=== PATIENT | female | born 1975 | race Caucasian/White ===

== ENCOUNTER 2023-06-05 21:09 | Emergency (ER) | payer OTHER, SELFPAY ==
[2023-06-05 21:19] VITALS: BP 169/80
--- NOTE | 2023-06-06 00:14 | ED.GENMED ---
History of Present Illness
<LORENA Hughes - Last Filed: 06/06/23 00:21>
General
Chief Complaint: Head Injury
Source: patient
Exam Limitations: none
Time Seen by Provider: 06/06/23 00:04
Nursing documentation reviewed up to this point in time: agreed with
Travel History
Have you had any contact with someone who has COVID-19?: No
Do you have any symptoms of coronavirus? Fever > 100 degrees, chills, cough, shortness of breath, sore throat, loss of taste or smell, muscle aches, or headache?: No
History of Present Illness
History of Present Illness:
patient is a 48 y/o female presenting after a lamp cover fell on her head. Patient states that the cover fell on the top of her head. Patient denies falling or any loss of consciousness. Patient admits there was pain on the top of the head at the
time of the incidence and patient put ice on it which gave mild relief. Patient admits to mild tenderness with palpation. Patient denies Visual changes, CULVER, dizziness, CP, SOB, abdominal pain, fever, chills, N/V/D/C. Patient denies using a blood
thinner. Patient denies tobacco or alcohol use in the last 48 hrs.
Review of Systems
<LORENA Hughes - Last Filed: 06/06/23 00:21>
Review of Systems
All Other Systems: Not applicable
Constitutional: Reports no symptoms
EENT: Reports other (pain to top of the head )
Respiratory: Reports no symptoms
Cardiac: Reports no symptoms
ABD/GI: Reports no symptoms
: Reports no symptoms
Musculoskeletal: Reports no symptoms
Skin: Reports no symptoms
Neurological: Reports no symptoms
Endocrine: Reports no symptoms
Hematologic/Lymphatic: Reports no symptoms
Psychiatric: Reports no symptoms
Phy Exam
<LORENA Hughes - Last Filed: 06/06/23 00:21>
General Physical Exam
General Presentation: well appearing and no apparent distress
General Skin: warm and dry
General Habitus: normal
General Mental: alert
General Hydration: appears well hydrated
ENT Exam
ENT Exam: EOMI and TM's normal
Additional ENT: mild tenderness to palaption to top of the head
Eye Exam
Eye Exam: PERRL, cornea clear and conjunctiva normal
Cardiovascular Exam
Cardiovascular Exam: regular rate/rhythm, no edema, no murmur and normal peripheral pulses
Pulmonary Exam
Pulmonary Exam: lungs clear, no respiratory distress, no rales, no crackles, no rhonchi, no stridor, no wheezing and no cough
Gastrointestinal Exam
Gastrointestinal Exam: normal bowel sounds, non tender, soft, no organomegaly, no pulsatile mass and non distended
Neurological Exam
Neurological Exam: alert, oriented x3, no motor deficits and speech normal
Musculoskeletal Exam
Musculoskeletal Exam: full ROM and no edema
Skin Exam
Skin Exam: normal color, warm/dry, no rash and no petechia
Psychiatric Exam
Psychiatric Exam: normal mood/affect
Course
<LORENA Hughes - Last Filed: 06/06/23 00:21>
Vital Signs
Initial and Last Documented VS:
Initial Vital Signs
Temp Pulse Resp BP Pulse Ox
98.1 F 74 16 169/80 98
06/05/23 21:19 06/05/23 21:19 06/05/23 21:19 06/05/23 21:19 06/05/23 21:19
Last Documented Vital Signs
Temp Pulse Resp BP Pulse Ox
98.1 F 74 16 169/80 98
06/05/23 21:19 06/05/23 21:19 06/05/23 21:19 06/05/23 21:19 06/05/23 21:19
<Crystal Brand DO - Last Filed: 06/06/23 00:51>
Vital Signs
Initial and Last Documented VS:
Initial Vital Signs
Temp Pulse Resp BP Pulse Ox
98.1 F 74 16 169/80 98
06/05/23 21:19 06/05/23 21:19 06/05/23 21:19 06/05/23 21:19 06/05/23 21:19
Last Documented Vital Signs
Temp Pulse Resp BP Pulse Ox
98.1 F 74 16 169/80 98
06/05/23 21:19 06/05/23 21:19 06/05/23 21:19 06/05/23 21:19 06/05/23 21:19
<LORENA Hughes - Last Filed: 06/06/23 00:21>
MDM/Problems Addressed
Differential Diagnosis Includes:
concussion
hematoma formation
soft tissue swelling
MDM/Problems Addressed:
head injury
<LORENA Hughes - Last Filed: 06/06/23 00:21>
*Critical Care Note
Total Time (30-74mins, 75-104mins- exclusive of procedures): Not Applicable
<DO Lucy Ruby Last Filed: 06/06/23 00:51>
*Pulse Oximetry
Patient hypoxic: no
ED Attending Note
<LORENA Hughes - Last Filed: 06/06/23 00:21>
-
Portions of this chart may have been created with voice recognition software.� Occasional wrong word or��sound alike� substitutions may have occurred due to the inherent limitations of voice recognition software.
<Crystal Brand DO - Last Filed: 06/06/23 00:51>
ED Attending Note
Patient seen and examined by attending physician: Yes
I performed the substantive portion of visit, reviewed & personally made and approve the management plan that is documented in note by myself or ALBERT.: Yes
I performed a history and physical exam of patient and discussed management with resident, I reviewed resident's note and agree with documented findings and plan of care.: Yes
ED Attending Note:
This is a 48-year-old woman with no significant past medical history who presents to the ED tonight after a light fixture and apparently fell from her ceiling striking her on the top of her head. Injury occurred around 8:30 PM tonight. She denies
fall nor loss of consciousness. She admits to mild pain top of her head initially after injury but pain has since resolved. She applied ice to the top of her head. Denies dizziness nor lightheadedness. No vision difficulty. No neck nor back
pain, no weakness. No difficulty with ambulation.
She takes no anticoagulants.
TRAUMA EXAM:
VITAL SIGNS: Vital signs reviewed, cooperative. Mild to moderate systolic hypertension. Upon recheck has improved slightly to 160/79.
DISTRESS: No active disease
EYES: Pupils reactive, no orbital trauma
NOSE: No deformity or epistaxis
FACE AND SCALP: There is a small midline anterior frontal scalp contusion that is nontender to palpation. No abrasion or laceration. External canals no blood
NECK: Supple nontender, full range of motion without difficulty nor pain.
BACK: Back nontender, pelvis stable to compression
RESPIRATORY: No distress, breath sounds normal, no tender chest wall
CARDIAC: No murmur, pulses equal and strong
ABDOMEN: Soft nontender bowel sounds normal
SKIN: Skin intact no bleeding, color normal
EXTREMITIES: Nontender
NEUROLOGICAL: Alert, oriented, no motor deficits
PSYCH: Mood affect normal
Patient presents with small forehead scalp contusion after light fixture fell onto her head.
Area is nontender to palpation.
She denies headache, neck is supple, nontender.
Overall exam is benign, no focal neurodeficits.
She takes no anticoagulants and with reassuring exam, no indication for CT of the head.
She is noted to have mild to moderate systolic hypertension and does admit to diagnosis of borderline hypertension.
I do suspect patient may have element of hypertension and recommend prompt follow-up with PCP for recheck.
As patient overall appears well, without pain, unremarkable exam, I suspect hypertension may be a chronic issue.
Discussed that patient may develop a headache over the next several days and recommend Tylenol versus ibuprofen as needed for headache. If this is ineffective or if headache severe, accompanied with recurrent vomiting or any other worrisome
symptoms prompt return to the ED.
Otherwise recommend follow-up with PCP for recheck.
Discharge Plan
Departure
Patient Disposition: Home (Routine Discharge)
Date of Disposition: 06/06/23
Time of Disposition: 00:32
Patient with high blood pressure during this ER visit?: Yes
Condition: Good
Discharge Problem:
Minor closed head injury
Instructions: Minor Head Injury (DC), BLOOD PRESSURE
Referrals:
Oseas Hale MD [Family Provider] - Call in 1-3 days for appt
Interventions
Interventions:
*ED COVID-19 Vaccine History Last Done: 06/05/23 21:19
Discharge Date and Time
Print Language: LATVIAN
[2023-06-06 00:48] VITALS: BP 164/73
== END 2023-06-06 00:49 | disposition home or self-care (01) ==
LOC: EMR 21:09
PROVIDERS: EMERGENCY PHYSICIAN Emergency Medicine; FAMILY PHYSICIAN Internal Medicine Geriatric Medicine
DX: S06.0XAA Concussion with loss of consciousness status unknown, initial encounter (principal); W22.8XXA Striking against or struck by other objects, initial encounter; R03.0 Elevated blood-pressure reading, without diagnosis of hypertension
CPT/HCPCS: 99283

== ENCOUNTER 2023-07-05 13:09 | Emergency (ER) | payer OTHER, SELFPAY ==
[2023-07-05 13:23] VITALS: BP 158/93
[2023-07-05 13:55] VITALS: BMI 21.5
--- NOTE | 2023-07-05 13:58 | ED.GENMED ---
History of Present Illness
<Yissel Corey PA-C - Last Filed: 07/05/23 15:16>
General
Chief Complaint: Abdominal Pain
Source: patient
Exam Limitations: none
Time Seen by Provider: 07/05/23 13:57
Nursing documentation reviewed up to this point in time: agreed with
Travel History
Have you had any contact with someone who has COVID-19?: No
Do you have any symptoms of coronavirus? Fever > 100 degrees, chills, cough, shortness of breath, sore throat, loss of taste or smell, muscle aches, or headache?: No
History of Present Illness
History of Present Illness:
This is a 48 y/o F with no past medical history who is presenting emergency department today with periumbilical and suprapubic abdominal pain that started today. Patient states that she noticed it when she woke up this morning. Patient states that
the pain started after she used the bathroom. Patient states that she has not noticed any thing that makes her pain worse. It is not affected by food. Patient has no past surgical history. Patient has no associated nausea or vomiting, no fevers or
chills. Patient denies any vaginal discharge, vaginal bleeding. Patient has not had a period since April. Patient's pain did relieve with Tylenol. Patient notes that there is still some mild pain but she feels significantly better than she
did earlier.
Review of Systems
<Yissel Corey PA-C - Last Filed: 07/05/23 15:16>
Review of Systems
All Other Systems: ROS reviewed and negative except as documented in HPI and ROS
Phy Exam
<Yissel Corey PA-C - Last Filed: 07/05/23 15:16>
Physical Exam
Physical Exam:
General: Patient is well appearing and in no acute distress; non-toxic
Skin: Warm and dry, no rashes or lesions
Head: Normocephalic, atraumatic
Eyes: Sclera non-icteric. EOMs intact.
Cardiac: Regular rate and rhythm, no murmurs
Peripheral Vascular: No lower extremity swelling
Pulm: Normal respiratory effort
Abdomen: There is mild periumbilical and suprapubic tenderness to palpation noted. No palpable masses, no guarding, no rebound tenderness.
Neuro: CN II-XII intact, no focal neurologic deficits.
Psychiatric: Appropriate mood and affect.
Course
<Yissel Corey PA-C - Last Filed: 07/05/23 15:16>
Orders/Labs/Results
Orders:
Orders
07/05/23 14:24
Complete Blood Count/With Diff Urgent
Comprehensive Metabolic Panel Urgent
HCG, Serum Qualitative Screen Urgent
Lipase Urgent
07/05/23 14:46
Add On- LAB Urgent
Tests Added?: HCG qual
Abnormal Lab Results
07/05/23
14:24
RBC 4.08 L 10^6/uL
(4.20-5.40)
Hgb 11.1 L g/dL
(12.0-16.0)
Hct 33.0 L %
(37.0-47.0)
MCV 80.9 L fL
(81.0-99.0)
Lymphocytes % 20.1 L %
(20.5-51.1)
Creatinine 0.5 L mg/dL
(0.6-1.0)
Glucose 117 H mg/dl
(70-99)
07/05/23 14:24
07/05/23 14:24
Vital Signs
Initial and Last Documented VS:
Initial Vital Signs
Temp Pulse Resp BP Pulse Ox
98.7 F 68 16 158/93 100
07/05/23 13:23 07/05/23 13:23 07/05/23 13:23 07/05/23 13:23 07/05/23 13:23
Last Documented Vital Signs
Temp Pulse Resp BP Pulse Ox
98.7 F 68 16 143/79 97
07/05/23 13:23 07/05/23 13:23 07/05/23 13:23 07/05/23 14:26 07/05/23 14:45
<Sameer Skelton MD - Last Filed: 07/05/23 15:07>
Orders/Labs/Results
Orders:
Orders
07/05/23 14:24
Complete Blood Count/With Diff Urgent
Comprehensive Metabolic Panel Urgent
HCG, Serum Qualitative Screen Urgent
Lipase Urgent
07/05/23 14:46
Add On- LAB Urgent
Tests Added?: HCG qual
Abnormal Lab Results
07/05/23
14:24
RBC 4.08 L 10^6/uL
(4.20-5.40)
Hgb 11.1 L g/dL
(12.0-16.0)
Hct 33.0 L %
(37.0-47.0)
MCV 80.9 L fL
(81.0-99.0)
Lymphocytes % 20.1 L %
(20.5-51.1)
Creatinine 0.5 L mg/dL
(0.6-1.0)
Glucose 117 H mg/dl
(70-99)
07/05/23 14:24
07/05/23 14:24
Vital Signs
Initial and Last Documented VS:
Initial Vital Signs
Temp Pulse Resp BP Pulse Ox
98.7 F 68 16 158/93 100
07/05/23 13:23 07/05/23 13:23 07/05/23 13:23 07/05/23 13:23 07/05/23 13:23
Last Documented Vital Signs
Temp Pulse Resp BP Pulse Ox
98.7 F 68 16 143/79 97
07/05/23 13:23 07/05/23 13:23 07/05/23 13:23 07/05/23 14:26 07/05/23 14:45
<Yissel Corey PA-C - Last Filed: 07/05/23 15:16>
MDM/Problems Addressed
Differential Diagnosis Includes:
appendicitis, diverticulitis, gastroenteritis, ovarian mass, , cystitis, musculoskeletal sprain/strain
MDM/Problems Addressed:
abdominal pain
Chronic conditions affecting care:
n/a
Acute Exacerbation and/or Progression of Chronic Illness:
n/a
<Yissel Corey PA-C - Last Filed: 07/05/23 15:16>
*Pulse Oximetry
Patient hypoxic: no
*Critical Care Note
Total Time (30-74mins, 75-104mins- exclusive of procedures): Not Applicable
Data Reviewed
Review of Other/Old Records Reveals: Records (Reviewed ER physician documentation from 06/06/2023) and Discharge Summary (No discharge summaries in [facility] to review)
Source: patient and records
<Yissel Corey PA-C - Last Filed: 07/05/23 15:16>
Patient Management
Escalation/DeEscalation of care consider admission/obs:
This is a 48 y/o F with no past medical history who is presenting emergency department today with periumbilical and suprapubic abdominal pain that started today. Patient's pain significantly relieved with Tylenol. She is very well-appearing, only
has some mild tenderness on exam. No peritoneal signs. Highly doubt surgical abdomen. Her CBC and CMP are within normal limits. Her vital signs are stable. She is afebrile. CT scanning was offered, but patient in agreement with watch and wait
approach. Considering her symptoms are significantly improved, we will discharge her with close return precautions. Patient in agreement with this plan, all patient's questions were answered.
ED Attending Note
<Yissel Corey PA-C - Last Filed: 07/05/23 15:16>
-
Portions of this chart may have been created with voice recognition software.� Occasional wrong word or��sound alike� substitutions may have occurred due to the inherent limitations of voice recognition software.
<Sameer Skelton MD - Last Filed: 07/05/23 15:07>
ED Attending Note
Patient seen and examined by attending physician: Yes
I performed the substantive portion of visit, reviewed & personally made and approve the management plan that is documented in note by myself or ALBERT.: Yes
ED Attending Note:
48-year-old female complaining of vague mid to lower abdominal discomfort that started this morning. No nausea vomiting or fever. Patient actually states symptoms have improved significantly.
On exam patient is nontoxic in no distress. Warm and dry perfusing well nonfocal.
Abdomen with very minimal suprapubic tenderness. No rebound or guarding no mass or hernia. No upper abdominal tenderness.
Impression: Very low clinical suspicion for a surgical abdomen at this time. Labs are normal. I discussed further radiologic imaging specifically CAT scan. CAT scan was offered and encouraged is the only test to definitively rule out a surgical
finding at this time or diverticulitis which would warrant antibiotics and has risk for perforation. However given that patient has significant improvement in her symptoms, no fever no white count very reasonable to observe as an outpatient.
Patient would prefer that approach at this time. It was stressed however that if symptoms do not resolve in the next 24 hours or there is any progression of symptoms she should return immediately for reevaluation
Discharge Plan
Departure
Patient Disposition: Home (Routine Discharge)
Date of Disposition: 07/05/23
Time of Disposition: 14:59
Patient with high blood pressure during this ER visit?: Yes
Condition: Good
Discharge Problem:
Abdominal pain
Instructions: Acetaminophen, Abdominal Pain, BLOOD PRESSURE
Referrals:
Oseas Hale MD [Family Provider] -
Activity Restrictions/Additional Instructions:
You can continue to take Tylenol as needed for your pain, 325 mg-1,000 mg every 4-6 hours as needed. Please do not exceed 4g in 24 hours.
PLEASE RETURN TO THE EMERGENCY DEPARTMENT SHOULD YOU EXPERIENCE FEVERS OR CHILLS, PERSISTENCE OF YOUR PAIN, ASSOCIATED NAUSEA OR VOMITING, FEVERS OR CHILLS, OR ANY OTHER CONCERNING SIGNS OR SYMPTOMS.
Please follow up with your primary care provider.
Interventions
Interventions:
*Risk Screen - Suicide Last Done: 07/05/23 13:55
*General Assessment Last Done: 07/05/23 13:55
*Neglect/Abuse Screening Last Done: 07/05/23 13:55
ED- Fall Risk Assessment Last Done: 07/05/23 13:55
*ED COVID-19 Vaccine History Last Done: 07/05/23 13:23
IA-[id number]-[id number] Assessment Last Done: 07/05/23 13:55
Discharge Date and Time
Print Language: DIVEHI
[2023-07-05 14:26] VITALS: BP 143/79
[2023-07-05 14:34] LABS: % Basophils 0.4 % (0-2); % Eosinophils 0.3 % (0-6); % Immature Granulocytes 0.3 % (0-0.5); % Lymphocytes 20.1 % (20.5-51.1); % Monocytes 4.6 % (1.7-9.3); % Neutrophils 74.3 % (42.2-75.2); Absolute Lymphocytes 1.4 10^3/uL (1.2-3.4); Absolute Monocytes 0.3 10^3/uL (0.1-0.6); Absolute Neutrophils 5.1 10^3/uL (1.4-6.5); Hemoglobin 11.1 g/dL (12.0-16.0); Mean Corp Hgb Conc. 33.6 g/dL (33.0-37.0); Mean Corpuscular Hgb 27.2 pg (27.0-31.0); Mean Corpuscular Volume 80.9 fL (81.0-99.0); Mean Platelet Volume 9.4 fL (7.4-10.4); Nucleated Red Blood Cells % 0 %; Platelet Count 246 10^3/uL (130-400); Red Blood Cell Count 4.08 10^6/uL (4.20-5.40); Red Cell Dist. Width 12.6 % (11.5-14.5); White Blood Cell Count 6.8 10^3/uL (4.8-10.8)
[2023-07-05 14:50] LABS: ALT (SGPT) 14 U/L (0-35); AST (SGOT) 24 U/L (14-36); Albumin 4.5 g/dl (3.5-5.0); Alkaline Phosphatase 69 U/L (38-126); Blood Urea Nitrogen 12 mg/dl (7-17); Calcium 9.7 mg/dl (8.4-10.2); Carbon Dioxide 29 mmol/L (22-30); Chloride 103 mmol/L (98-107); Estimated Creatinine Clearance 82 ml/min; Glucose 117 mg/dl (70-99); Lipase 66 U/L (23-300); Potassium 4.2 mmol/L (3.5-5.1); Sodium 136 mmol/L (135-145); Total Bilirubin 0.2 mg/dl (0.2-1.3); Total Protein 7.7 g/dl (6.3-8.2); eGFR > 60.00
[2023-07-05 15:08] LABS: HCG, Serum Qualitative Screen Negative
== END 2023-07-05 15:36 | disposition home or self-care (01) ==
LOC: EMR 13:09
PROVIDERS: Physician Assistant; EMERGENCY PHYSICIAN Emergency Medicine; FAMILY PHYSICIAN Internal Medicine Geriatric Medicine
DX: R10.33 Periumbilical pain (principal)
CPT/HCPCS: 99283; 80053; 83690; 84703; 85025

== ENCOUNTER → 2024-01-31 15:58 | Outpatient (REF) | payer OTHER, SELFPAY | LOC: WDC 15:58 | PROVIDERS: ATTENDING PHYSICIAN Obstetrics & Gynecology Gynecology; FAMILY PHYSICIAN Internal Medicine Geriatric Medicine | DX: Z12.31 Encounter for screening mammogram for malignant neoplasm of breast (principal) | CPT/HCPCS: 77063; 77067 ==